=== PATIENT | female | born 1970 | race Caucasian/White ===

== ENCOUNTER 2025-02-13 17:33 | Inpatient (IN) | payer BC, SELFPAY ==
--- NOTE | ~2025-02-13 | XR_ITS ---
CLINICAL HISTORY: cp Two views of the chest. COMPARISON: None FINDINGS: Mitral annular prosthesis present. Normal heart size. No consolidation. No pleural effusion or pneumothorax. Mild rightward curvature of the midthoracic spine. No acute fracture IMPRESSION: 1. No acute cardiopulmonary abnormality. This document has been electronically signed by: Luis Alberto Kelly MD on 02/13/2025 18:35:38
--- NOTE | 2025-02-13 17:35 | ECG_ITS ---
Test Reason : CP Blood Pressure : */* mmHG Vent. Rate : 77 BPM Atrial Rate : 77 BPM P-R Int : 198 ms QRS Dur : 90 ms QT Int : 380 ms P-R-T Axes : 34 -26 54 degrees QTcB Int : 430 ms Sinus rhythm with occasional Premature ventricular complexes Possible Left atrial enlargement Borderline ECG No previous ECGs available Referred By: Caitlin Schwartz Electronically Signed By: Hernandez Flood
--- NOTE | 2025-02-13 17:55 | ED_ITS ---
HPI - Chest Pain General Chief Complaint: Chest Pain Stated Complaint: Chest pain Time Seen by Provider: 02/13/25 18:09 Source: patient Mode of arrival: ambulatory Limitations: no limitations History of Present Illness ED Provider: DR. Child HPI narrative: 54-year-old female came in for evaluation of left-sided chest pain started about 1 hour ago after work constitution party, pain was localized to the left side of the chest radiates down to the left upper extremity described as heaviness on the chest, pain persist since it started may be less now, patient thinks it is anxiety related symptoms. Patient has a history of non STEMI last year and workup was negative for coronary artery disease patient required no stent and was attributed to life stress that patient was going through. Related Data Allergies Allergy/AdvReac Type Severity Reaction Status Date / Time Penicillins Allergy Severe Angioedema Verified 02/13/25 17:59 nitrofurantoin Allergy Intermediate Rash Verified 02/13/25 17:59 [From Macrobid] Sulfa (Sulfonamide Allergy Intermediate Rash Verified 02/13/25 17:59 Antibiotics) Review of Systems 2 Review of Systems: All other systems are reviewed and are negative Constitutional: Reports as per HPI and Reports no additional constitutional complaints Eyes: Reports as per HPI and Reports no additional eye complaints Reports system reviewed and no additional complaints, except as documented Cardiovascular: Reports as per HPI and Reports no additional cardiovascular complaints Respiratory: Reports as per HPI and Reports no additional respiratory complaints Gastrointestinal: Reports as per HPI and Reports no additional gastrointestinal complaints Genitourinary: Reports no additional female genitourinary complaints Musculoskeletal: Reports no additional musculoskeletal complaints Skin/Breast: Reports system reviewed and no additional complaints, except as docu Psychiatric: Reports no additional psychiatric complaints Endocrine: Reports no additional endocrine complaints Hematologic/Lymphatic: Reports no additional hematologic/lymphatic complaints Allergic/Immunologic: Reports no additional allergic/immunologic complaints Reports system reviewed and no additional complaints, except as documented and Reports Abnormal speech present [facility] Past Medical History Medical History Mood disorder Hypertension Social History Social History Smoked in Last 30 Days: No Use of substances other than those prescribed or required for medical reasons: No Advance Directives: No Advance Directives Information Provided: Yes Do you have a plan to hurt others: No Plan Patient : No Physical Exam 2 Vital Signs: Vital Signs: Last Vital Signs Temp 98.3 F 02/13/25 17:56 Pulse 72 02/13/25 22:09 Resp 14 02/13/25 22:09 BP 133/85 02/13/25 22:09 Pulse Ox 97 02/13/25 22:09 O2 Del Method Room Air 02/13/25 22:09 BMI result Body Mass Index 28.7 Vital signs have been reviewed and appear to be correct. Blood pressure elevated. Heart rate normal. Respiratory rate normal. Temperature normal. Oxygen saturation normal. Appearance: Alert. Oriented X3. No acute distress. Head: Normal external exam. Normocephalic. Atraumatic. No C[place]rena signs noted. No raccoon eyes noted Eyes: PERRLA. EOMI. Conjunctiva and sclera normal. Eyelids normal. ENT: TM's Normal. Pharynx normal. Uvula midline. Moist mucous membranes. No trismus noted. No drooling noted. No muffled voice noted. Neck: Normal inspection. Neck supple. FROM. No adenopathy. Thyroid Normal. No meningeal signs. No neck mass noted. CVS: Normal heart rate and rhythm. Heart sound normal. No murmurs noted. Pulses normal throughout. Respiratory: No respiratory distress. Painless inspiration. Breath sounds normal. No wheezes/rales/rhonchi noted. Chest nontender. No accessory muscle usage noted or decreased air movement noted. Abdomen: Soft and nontender. Bowel sounds normal in all 4 quadrants. No distention noted. No organomegaly noted. No visible injury noted. Back: No CVA tenderness. Full range of motion noted. Skin: Skin warm and dry. Normal skin color. Normal skin turgor. No rashes/lesions/lacerations noted. Extremities: No lower extremity edema. Extremities exhibit normal range of motion. Extremities nontender. Neuro: Oriented X 3. Cranial nerve exam: II-XII are grossly intact No motor deficit. No sensory deficit. Reflexes normal. Course Course Course Narrative: This is a Rapid Medical Exam performed in triage by Caitlin Schwartz PA-C. Full HPI, ROS and PE to be performed by primary ED provider. 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 Admits to pain still at present. denies SOB, nausea, dizziness. PE: NAD, nontoxic appearing, talking in complete sentences Plan: EKG, labs, SARs, CXR, ASA Reevaluation(s) Reevaluation #1: non STEMI, no chest pain now after nitro. Case discussed with composition stone applicator on-call Dr. Flood. Received aspirin, nitro, statin, will start on heparin IV , and admit to medical service. Time: 22:29 Medications Administered Generic Name Dose Route Start Last Admin Trade Name Freq PRN Reason Stop Dose Admin Heparin Sodium/Sodium Chloride 25,000 unit in 250 mls @ 0 mls/hr 02/13/25 22:30 02/13/25 22:57 Heparin Sodium,Porcine/1/2ns IVCONT 11.03 units/kg/hr .Q0M ALESSANDRA 10 mls/hr Administration Protocol Per Protocol Sodium Chloride 3 ml 02/14/25 00:00 02/13/25 23:50 0.9 % Sodium Chloride Flush 3 Ml Syringe IVFLUSH Not Given QSHIFT ALESSANDRA Discontinued Medications Generic Name Dose Route Start Last Admin Trade Name Freq PRN Reason Stop Dose Admin Aspirin 325 mg 02/13/25 17:55 02/13/25 18:17 Aspirin Enteric Coated 325 Mg Tablet.Dr PO 02/13/25 17:56 325 mg ONCE ONE Administration Aspirin 324 mg 02/13/25 20:17 02/13/25 20:29 Aspirin 81 Mg Tab.Chew PO 02/13/25 20:18 Not Given ONCE ONE Atorvastatin Calcium 80 mg 02/13/25 20:17 02/13/25 20:28 Atorvastatin Calcium 80 Mg Tablet PO 02/13/25 20:18 80 mg ONCE ONE Administration Heparin Sodium (Porcine) 4,000 unit 02/13/25 22:26 02/13/25 22:56 Heparin Sodium,Porcine 5,000 Unit/Ml Vial IVPUSH 02/13/25 22:27 4,000 unit ONCE ONE Administration Nitroglycerin 0.5 inch 02/13/25 20:17 02/13/25 20:28 Nitroglycerin 2 % Oint 1 Gm Packet TRANSDERMA 02/13/25 20:18 0.5 inch ONCE ONE Administration Medical Decision Making Differential Diagnosis Differential Diagnoses: The differential diagnosis associated with the presentation includes ( ACS, pneumonia, pneumothorax, pleural effusion, muscular chest wall pain, pulmonary embolism, electrolyte derangement, severe anemia) Admission/Observation Consideration of admission/observation: Escalation of care including admission/observation considered Consult Healthcare Provider Management of the patient was discussed with: Hospitalist ( Dr. Reece) and Automatic I Threading Machine Feeder ( Dr. Flood) Lab Data MDM Lab Attestation statement: I reviewed the patient's lab results. 02/13/25 22:45 02/13/25 18:26 Labs: Lab Results 02/13/25 02/13/25 02/13/25 Range/Units 18:26 19:32 21:27 WBC 5.5 (4.8-10.8) X10*3/uL RBC 4.98 (4.20-5.50) X10*6/uL Hgb 14.8 (12.0-16.0) g/dl Hct 42.8 (37.0-47.0) % MCV 85.9 (80.0-98.0) fL MCH 29.7 (27.0-33.0) pg MCHC 34.6 (31.0-35.0) g/dl RDW 11.9 (11.0-16.0) % Plt Count 206 (160-400) X10*3/uL MPV 10.9 (9.4-12.3) fL Immature Gran % (Auto) 0.2 (0.0-0.4) % Neut % (Auto) 53.5 (45-73) % Lymph % (Auto) 34.7 (20-40) % [place] % (Auto) 8.2 (2-11) % Eos % (Auto) 2.7 (0-4) % Baso % (Auto) 0.7 (0-2) % Lymph # (Auto) 1.9 (1.2-4.9) X10*3/uL [place] # (Auto) 0.5 (0.1-1.2) X10*3/uL Eos # (Auto) 0.2 (0.0-0.4) X10*3/uL Baso # (Auto) 0.0 (0.0-0.2) X10*3/uL Abs Immat Gran (auto) 0.01 (0.00-0.03) X10*3/uL Absolute Neuts (auto) 2.9 (2.0-8.3) x10*3/uL Absolute Nucleated RBC 0.000 (0.0-0.012) X10*3/uL Nucleated RBC % (auto) 0.0 (0.0-0.2) /100WBC D-Dimer High Sensitivty < 150 NG/ML Sodium 141 (135-145) mmol/L Potassium 3.9 (3.3-5.1) mmol/L Chloride 108 (96-108) mmol/L Carbon Dioxide 26 (22-29) mmol/L Anion Gap 11 L (12-20) BUN 16 (9-16) mg/dL Creatinine 0.81 (0.5-1.4) mg/dL Estim Creat Clear Calc 97.0 Estimated GFR > 60 Random Glucose 106 (60-115) mg/dL Calcium 9.5 (8.4-10.2) mg/dL Magnesium 2.0 (1.6-2.6) mg/dL Total Bilirubin 0.4 (0.0-1.0) mg/dL Direct Bilirubin 0.1 (0.0-0.5) mg/dL AST 27 (5-31) U/L ALT 26 (0-31) U/L Alkaline Phosphatase 65 (39-117) U/L Troponin I High Sens 76.2 H* 1470.2 H* D (<3.5-17.0) ng/L Total Protein 7.0 (6.5-8.0) g/dL Albumin 4.4 (3.5-5.0) g/dL Influenza Type A (PCR) NEGATIVE (Negative) Influenza Type B (PCR) NEGATIVE (Negative) RSV RNA Qual (PCR) NEGATIVE (Negative) SARS-CoV-2 RNA (RT-PCR) NEGATIVE (Negative) Independent Interpretation I performed an independent interpretation of an: Plain X-Ray ( chest: No acute cardiopulmonary abnormality.) Critical Care Time Critical Care Time Critical Care Time: Yes Total Critical Care Time: 60 Attestation: The patient was critically ill with a high probability of imminent or life- threatening deterioration. I spent greater than 30 minutes of discontinuous time evaluating the patient, delivering critical care at the bedside, discussing evaluating data with consultants. Critical care time does not include time spent performing separately billable procedures or teaching. Time spent performing critical care was 60 minutes. Discharge Plan Discharge Clinical Impression: Non-ST elevated myocardial infarction (non-STEMI) Patient Disposition: Admitted As Inpatient
[2025-02-13 17:56] VITALS: BP 156/102; PULSE 81; RESP 18; TEMP 36.8; O2SAT 98; BMI 28.7
[2025-02-13] MEDS: Aspirin Enteric Coated 325 MG TABLET.DR PO (18:17)
[2025-02-13 18:27] VITALS: BP 139/96; PULSE 70; RESP 16; O2SAT 96
[2025-02-13 18:39] LABS: MANUAL DIFF FLAG NO
[2025-02-13 18:40] LABS: Basophils Percent Auto 0.7 % (0-2); Eosinophils Absolute Auto 0.2 X10*3/uL (0.0-0.4); Eosinophils Percent Auto 2.7 % (0-4); Hematocrit 42.8 % (37.0-47.0); Hemoglobin 14.8 g/dl (12.0-16.0); Imm Gran Abs Auto 0.01 X10*3/uL (0.00-0.03); Imm Gran Pct Auto 0.2 % (0.0-0.4); Lymphocytes Absolute Auto 1.9 X10*3/uL (1.2-4.9); Lymphocytes Percent Auto 34.7 % (20-40); Mean Corpuscular HGB Conc 34.6 g/dl (31.0-35.0); Mean Corpuscular Hemoglobin 29.7 pg (27.0-33.0); Mean Corpuscular Volume 85.9 fL (80.0-98.0); Mean Platelet Volume 10.9 fL (9.4-12.3); Monocytes Absolute Auto 0.5 X10*3/uL (0.1-1.2); Monocytes Percent Auto 8.2 % (2-11); Neutrophils Absolute Auto 2.9 x10*3/uL (2.0-8.3); Neutrophils Percent Auto 53.5 % (45-73); Platelet Count 206 X10*3/uL (160-400); Red Blood Count 4.98 X10*6/uL (4.20-5.50); Red Cell Distribution Width 11.9 % (11.0-16.0); White Blood Count 5.5 X10*3/uL (4.8-10.8)
[2025-02-13 18:56] LABS: Alanine Aminotransferase 26 U/L (0-31); Albumin Level 4.4 g/dL (3.5-5.0); Alkaline Phosphatase 65 U/L (39-117); Anion Gap 11 (12-20); Aspartate Amino Transferase 27 U/L (5-31); Bilirubin Direct 0.1 mg/dL (0.0-0.5); Bilirubin Total 0.4 mg/dL (0.0-1.0); Blood Urea Nitrogen 16 mg/dL (9-16); Calcium 9.5 mg/dL (8.4-10.2); Carbon Dioxide 26 mmol/L (22-29); Chloride 108 mmol/L (96-108); Estimated Glomerular Filt Rate > 60; Glucose Random 106 mg/dL (60-115); Potassium 3.9 mmol/L (3.3-5.1); Sodium 141 mmol/L (135-145)
[2025-02-13 19:16] LABS: Troponin-I High Sensitivity 76.2 ng/L (<3.5-17.0)
[2025-02-13 19:17] LABS: Influenza A PCR NEGATIVE (Negative); Influenza B PCR NEGATIVE (Negative); Resp Syncy Virus RNA Qual PCR NEGATIVE (Negative); SARS COV2 PCR INHOUSE NEGATIVE (Negative)
[2025-02-13 19:44] VITALS: BP 140/87; PULSE 64; RESP 14; O2SAT 99
[2025-02-13 20:05] LABS: D Dimer High Sensitivity < 150 NG/ML
[2025-02-13] MEDS: Nitroglycerin 2 % Oint 1 GM Packet 0.5 INCH TRANSDERMA (20:28)
[2025-02-13] MEDS: Atorvastatin Calcium 80 MG TABLET PO (20:28)
[2025-02-13 20:29] VITALS: BP 151/89; PULSE 65; RESP 16; O2SAT 100
[2025-02-13 20:54] VITALS: BP 126/85; PULSE 67; RESP 12; O2SAT 99
[2025-02-13 21:57] LABS: Troponin-I High Sensitivity 1470.2 ng/L (<3.5-17.0)
[2025-02-13 22:09] VITALS: BP 133/85; PULSE 72; RESP 14; O2SAT 97
--- NOTE | 2025-02-13 22:10 | PC.NURSE ---
Patient awake and alert. skin pwd, resp even and non labored. speaking in full, clear sentences. denies chest pain/pressure at this time. NSR via tele
--- NOTE | 2025-02-13 22:48 | PC.NURSE ---
hospitalist to bedside. patient aware of plan of care for admission for NSTEMI. 2nd IV established and labs obtained prior to starting heparin
[2025-02-13 22:49] LABS: Hematocrit 40.5 % (37.0-47.0); Hemoglobin 14.3 g/dl (12.0-16.0); Mean Corpuscular HGB Conc 35.3 g/dl (31.0-35.0); Mean Corpuscular Hemoglobin 29.5 pg (27.0-33.0); Mean Corpuscular Volume 83.7 fL (80.0-98.0); Mean Platelet Volume 10.6 fL (9.4-12.3); Platelet Count 197 X10*3/uL (160-400); Red Blood Count 4.84 X10*6/uL (4.20-5.50); Red Cell Distribution Width 11.9 % (11.0-16.0); White Blood Count 6.1 X10*3/uL (4.8-10.8)
[2025-02-13] MEDS: Heparin Sodium,Porcine 5,000 UNIT/ML VIAL 4000 UNIT IVPUSH (22:56)
[2025-02-13] MEDS: Heparin Sodium,Porcine/1/2NS 25,000 UNIT/250 ML IV.SOLN 10 UNIT IVCONT (22:57)
--- NOTE | 2025-02-13 23:05 | P.HPHOSP_ITS ---
History of Present Illness Date of Service: 02/13/25 Chief Complaint: Chest pain This is a 54-year-old female with pertinent history of hypertension, mood disorder who presents to the emergency department for evaluation of chest pain. Patient states she had sudden onset of left-sided chest pain while she was walking which lasted until she came to the ER. The chest pain subsided with rest. Did not increase with exertion. It was constant and radiated down the left arm. Patient thinks the nitroglycerin patch in the ER provided some relief. No associated nausea, sweating or shortness of breath. States she had NSTEMI 1 year ago when coronary cardiac catheterization did not reveal any obstructive CAD. She does not have any stents in place. No fever, chills, palpitations, abdominal pain, changes in urinary or bowel habits. In the emergency department, troponin found to be elevated and patient was initiated on IV heparin. Cardiology was consulted Review of Systems 2 Cardiovascular: Cardiovascular: Reports chest pain and Reports chest pain with activity Gastrointestinal: Gastrointestinal: Reports no additional gastrointestinal complaints Genitourinary: Genitourinary: Reports no additional female genitourinary complaints [facility] Medical History Mood disorder Hypertension Pertinent family history: No family history of early CAD Social History Smoked in Last 30 Days: No Use of substances other than those prescribed or required for medical reasons: No Advance Directives: No Advance Directives Information Provided: Yes Do you have a plan to hurt others: No Plan Patient : No Meds Allergies Allergy/AdvReac Type Severity Reaction Status Date / Time Penicillins Allergy Severe Angioedema Verified 02/13/25 17:59 nitrofurantoin Allergy Intermediate Rash Verified 02/13/25 17:59 [From Macrobid] Sulfa (Sulfonamide Allergy Intermediate Rash Verified 02/13/25 17:59 Antibiotics) Active Medications: Current Medications Heparin Sodium (Porcine) (Heparin Sodium,Porcine 5,000 Unit/Ml Vial) 3,600 unit 40 unit/kg (3600 unit) IVPUSH PROTOCOL BOLUS PRN; Protocol PRN Reason: 40 unit/kg - Heparin Protocol Heparin Sodium (Porcine) (Heparin Sodium,Porcine 5,000 Unit/Ml Vial) 7,300 unit 80 unit/kg (7300 unit) IVPUSH PROTOCOL BOLUS PRN; Protocol PRN Reason: 80 unit/kg - Heparin Protocol Heparin Sodium/Sodium Chloride (Heparin Sodium,Porcine/1/2ns) 25,000 unit in 250 mls @ 0 mls/hr IVCONT .Q0M [facility]; Protocol Last Admin: 02/13/25 22:57 Dose: 11.03 units/kg/hr, 10 mls/hr Physical Exam 2 Vital Signs and Narrative: Vital Signs: Last Vital Signs Temp 98.3 F 02/13/25 17:56 Pulse 72 02/13/25 22:09 Resp 14 02/13/25 22:09 BP 133/85 02/13/25 22:09 Pulse Ox 97 02/13/25 22:09 O2 Del Method Room Air 02/13/25 22:09 BMI result Body Mass Index 28.7 Middle-aged female lying in bed in no distress Neck supple, no JVD Regular rate and rhythm, S1-S2 heard Regular breath sounds bilaterally, no wheezing or crackles appreciated Abdomen soft nontender, no guarding, no rigidity Patient is awake, alert and oriented to self, place, time and person ; no focal motor deficit Psych: Normal mood No pedal edema Results Labs 02/13/25 22:45 02/13/25 18:26 Labs: Laboratory Results - last 24 hr 02/13/25 02/13/25 02/13/25 18:26 19:32 22:45 MCV 85.9 83.7 MCH 29.7 29.5 MCHC 34.6 35.3 H RDW 11.9 11.9 Plt Count 206 197 MPV 10.9 10.6 Immature Gran % (Auto) 0.2 Neut % (Auto) 53.5 Lymph % (Auto) 34.7 [place] % (Auto) 8.2 Eos % (Auto) 2.7 Baso % (Auto) 0.7 Lymph # (Auto) 1.9 [place] # (Auto) 0.5 Eos # (Auto) 0.2 Baso # (Auto) 0.0 Abs Immat Gran (auto) 0.01 Absolute Neuts (auto) 2.9 Absolute Nucleated RBC 0.000 0.000 Nucleated RBC % (auto) 0.0 0.0 D-Dimer High Sensitivty < 150 Anion Gap 11 L Estim Creat Clear Calc 97.0 Estimated GFR > 60 Random Glucose 106 Calcium 9.5 Magnesium 2.0 Total Bilirubin 0.4 Direct Bilirubin 0.1 AST 27 ALT 26 Alkaline Phosphatase 65 Total Protein 7.0 Albumin 4.4 Influenza Type A (PCR) NEGATIVE Influenza Type B (PCR) NEGATIVE RSV RNA Qual (PCR) NEGATIVE SARS-CoV-2 RNA (RT-PCR) NEGATIVE Assessment and Plan (1) Non-ST elevated myocardial infarction (non-STEMI): Status: Acute Plan This is a 54-year-old female with pertinent history of hypertension, mood disorder who presents to the emergency department for evaluation of chest pain. #. NSTEMI: Will admit patient with cardiac monitoring. Initiated IV heparin. Also initiated aspirin and high-intensity statin. Patient is on beta-kay. Consulted Cardiology, appreciate assistance. Echo in a.m. #. Hypertension: On metoprolol #. Mood disorder: On lorazepam p.r.n. Med rec pending DVT prophylaxis: IV heparin Full code Admit as inpatient and will require two night minimum hospital stay for IV heparin (as above), which is not possible in a lesser acute setting. trousseau consultant Quality Stroke Does the patient have a stroke diagnosis?: No VTE Prior VTE?: No VTE Risk Level:: Medical - moderate - high VTE Device Contraindication: Treatment Not Indicated VTE Drug Contraindication: N/A - Med Ordered
[2025-02-13 23:13] LABS: Prothrombin Time 11.8 SEC (10.9-12.4)
[2025-02-13 23:15] LABS: PTT Heparin Drip 32.3 SEC (53-77.9)
--- NOTE | 2025-02-14 | ECG_ITS ---
Test Reason : elevated tropoin Blood Pressure : */* mmHG Vent. Rate : 77 BPM Atrial Rate : 77 BPM P-R Int : 200 ms QRS Dur : 78 ms QT Int : 384 ms P-R-T Axes : 45 -43 33 degrees QTcB Int : 434 ms Sinus rhythm with occasional Premature ventricular complexes Left axis deviation Nonspecific T wave abnormality Abnormal ECG When compared with ECG of 13-Feb-2025 17:43, Nonspecific T wave abnormality, worse in Lateral leads Referred By: Pamela Bonilla Electronically Signed By: Hernandez Flood
[2025-02-14] MEDS: Acetaminophen 325 MG TABLET 650 MG PO ×2 (00:43→06:11)
--- NOTE | 2025-02-14 01:38 | PC.NURSE ---
This radio news writer assumed care of this Pt at 2300. Pt A&Ox3, Pt reports 5/10 headache, Tylenol given per request. Reports complete Pt brought up to room 460. Pt ambulated independently with steady gait.
[2025-02-14 01:42] VITALS: BP 123/78; PULSE 78; TEMP 36; O2SAT 95
[2025-02-14 03:36] VITALS: BP 112/72; PULSE 67; RESP 18; TEMP 36.6; O2SAT 96
[2025-02-14 06:26] LABS: Hematocrit 41.6 % (37.0-47.0); Mean Corpuscular HGB Conc 33.7 g/dl (31.0-35.0); Mean Corpuscular Hemoglobin 28.9 pg (27.0-33.0); Mean Corpuscular Volume 85.8 fL (80.0-98.0); Mean Platelet Volume 11.4 fL (9.4-12.3); Platelet Count 190 X10*3/uL (160-400); Red Blood Count 4.85 X10*6/uL (4.20-5.50); Red Cell Distribution Width 11.9 % (11.0-16.0); White Blood Count 5.6 X10*3/uL (4.8-10.8)
[2025-02-14 06:32] LABS: INTERNATIONAL NORM RATIO 1.1 (0.9-1.1); Prothrombin Time 12.2 SEC (10.9-12.4)
[2025-02-14 06:44] LABS: Anion Gap 11 (12-20); Blood Urea Nitrogen 14 mg/dL (9-16); Calcium 9.1 mg/dL (8.4-10.2); Carbon Dioxide 25 mmol/L (22-29); Chloride 110 mmol/L (96-108); Creatinine Clr Calc Pharmacy 115.5; Estimated Glomerular Filt Rate > 60; Glucose Random 106 mg/dL (60-115); Sodium 142 mmol/L (135-145)
--- NOTE | 2025-02-14 07:00 | CA_ITS ---
Transthoracic Echocardiogram Patient (Last, First, Middle): Lisa Maharaj E Gender: Female Date of : 1970 Age: 54 Procedure Date: 02/14/2025 Procedure Type: Transthoracic Echocardiogram Location: [facility] [place] Height: 177.8 cm Weight: 90.27 kg BSA: 2.08 m2 Heart Rate: 67 bpm BP: 103 / 71 mmHg Tinter Photograph: SB Referring MD: Jered Reece MD Symptoms: NSTEMI Study Quality: Adequate ECG Rhythm: Sinus Conclusions: - Normal left ventricular size, thickness, and systolic function. The visually estimated ejection fraction is between 55-60%. - The basal inferior, mid anterolateral, and mid inferolateral segments are hypokinetic. - Normal right ventricular cavity size and systolic function. - Ring repair of mitral valve in the past. - There is mild dilatation of the sinuses of Valsalva measuring 4.10 cm and mild dilatation of the ascending aorta measuring 3.70 cm. Findings Left Ventricle Normal left ventricular size, thickness, and systolic function. The visually estimated ejection fraction is between 55-60%. There is evidence of regional wall motion abnormalities. Diastolic function is indeterminate on the basis of available data. Reduced global longitudinal strain -13%. Wall Motion Rest Echo Findings The basal inferior, mid anterolateral, and mid inferolateral segments are hypokinetic. Right Ventricle Normal right ventricular cavity size and systolic function. Atria The left atrium is normal in size. The right atrium is normal in size. Aortic Valve Normal aortic valve structure and function. There is no aortic valve stenosis. There is no aortic valve regurgitation. Mitral Valve There is no mitral valve regurgitation. There is no mitral valve stenosis. Ring repair of mitral valve in the past. Pulmonic Valve The pulmonic valve is normal. There is trace pulmonic valve regurgitation. Tricuspid Valve Normal tricuspid valve structure. There is no tricuspid valve regurgitation. Tricuspid regurgitation envelope is inadequate for calculation of right ventricular systolic pressure. Normal right atrial pressure. Great Vessels There is mild dilatation of the sinuses of Valsalva measuring 4.10 cm and mild dilatation of the ascending aorta measuring 3.70 cm. The visualized portions of the pulmonary artery and branches are normal. Venous The inferior vena cava is normal in size and collapses greater than 50% with inspiration. Pericardium/Pleural There is no evidence of pericardial effusion. Prior Study Comparison No prior study available for comparison. Measurements 2D Linear Measurements IVSd: 1.08 0.6-0.9/0.6-1.0 cm LVIDd: 4.22 3.9-5.3/4.2-5.9 cm LVIDd Index: 2.03 2.4-3.2/2.2-3.1 cm/m2 LVIDs: 3.17 2.0-3.6 cm LVPWd: 0.79 0.7-1.1 cm LA Diam: 4.40 2.7-3.8/3.0-4.0 cm LAIDs Index: 2.12 1.5-2.3 cm/m2 LV Mass: 156.17 67-162/88-224 g LV Mass Index: 75.08 43-95/49-115 g/m2 LVOT Diam: 2.30 3.0+(-)1.3 cm 2D Systolic Function EF 4C: 35.30 >55% EF 2C: 55.60 >55% EF BiP: 46.40 >55% Mitral Valve MV VTI: 0.35 MV Pk Al: 1.46 MV Mn Al: 0.89 MV Pk Grad: 9.00 MV Mn Grad: 4.00 MV Pk E: 1.25 MV PK A: 1.36 MV Decel Time: 177.00 E/A: 0.90 E'Lateral: 5.33 E'Medial: 4.90 E/E' Med: 25.50 E/E' Lat: 23.50 PHT: 52.00 MVA PHT: 4.23 MVA Continuity: 2.30 Decel Bledsoe: 7.09 Aortic Valve AoV Pk Al: 0.91 AoV Pk Grad: 3.00 MARE: 4.24 LVOT LVOT Pk Al: 0.93 LVOT Mn Al: 0.66 LVOT VTI: 0.19 LVOT Pk Grad: 3.00 LVOT Mn Grad: 2.00 LVOT Diam: 2.30 LVOT Area: 4.15 Diastolic Function MV Pk E: 1.25 MV Pk A: 1.36 E/A: 0.90 E'Medial: 4.90 E/E' Med: 25.50 E' Laterial: 5.33 E/E' Lat: 23.50 Right Ventricle TAPSE (mm): 22.60 TVS' Al: 13.40 Tricuspid Valve RA Press: 3.00 Great Vessels Aorta Sinus of Valsalva: 4.10 2.0-3.5 cm Ao Asc: 3.70 2.1-3.4 cm Pulmonary Veins Pulm Vein S/D 1.90 Pulmonary Valve PV Pk Al: 0.63 Peak PV Grad: 2.00 Updated in Other Vendor System with Status of Final Hernandez Flood MD electronically signed on 02/14/2025 2:27:22 PM with status of Final
[2025-02-14 07:16] VITALS: BP 103/71; PULSE 67; RESP 16; TEMP 36.4; O2SAT 96
[2025-02-14] MEDS: Aspirin 81 MG TAB.CHEW PO (08:26)
--- NOTE | 2025-02-14 08:28 | PHA.MEDREC ---
Addendum entered by David Terry [facility] 02/14/25 08:55: Med rec was reviewed by [facility]. Addendum entered by Lynette Fields 02/14/25 08:41: Patient confirmed she is taking her Zolpidem 10mg tab 1/2 tab (5mg) as needed for sleep instead of 1 tab as needed. Original Note: Pharmacy Consult ? Medication Reconciliation Pharmacy has completed the medication reconciliation. Spoke with patient and she confirmed her medications. Patient confirmed she still has Valacyclovir 500mg tab as needed for outbreaks. She confirmed she takes the Estradiol cream MOTH and D-Mannos daily but states she has not taken either of those in about a week.
[2025-02-14] MEDS: 0.9 % Sodium Chloride Flush 3 ML SYRINGE IVFLUSH (08:35)
--- NOTE | 2025-02-14 08:52 | MHC.CM.PN ---
CM met with Patient at bedside. Patient lives in a house with her 2 adult Daughters and she is functionally independent. Home/self care is Patient's goal and CM has initiated and will follow for dc planning. PCP is Dr. Isis Orellana and Patient hopes to drive herself home (car is here) at time of dc.
[2025-02-14 10:51] VITALS: BP 110/70; PULSE 75; RESP 16; TEMP 36.8; O2SAT 97
--- NOTE | 2025-02-14 11:44 | PM.CNCAR ---
History of Present Illness History of Present Illness Date of Service: 02/15/25 Requesting physician: Pamela Bonilla Chief complaint: NSTEMI Narrative: Pleasant 54 year female with background history of mitral valve repair in [place] who follows with cardiology in [place] presenting for chest discomfort and arm discomfort starting 17:00 yesterday. She said she was at work when she started feeling pressure-like feeling in the chest and arm discomfort. She had similar episode in September 2023 when she was thought to have vasospasm and was sent home with amlodipine. 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 She does not have any dynamic EKG changes but has significantly elevated troponin level of 11,000 at this point. Echocardiography was done which is showing mid anterolateral and mid inferolateral hypokinesis. She is currently symptom free. She is on a heparin drip. She was not taking aspirin which was stopped also after previous catheterization. [facility] Past Medical History Medical History Mood disorder Hypertension Social History Social History Household Members: Children Housing: House Patient Tobacco Use Status: Never used Tobacco service: No Meds Allergies Allergy/AdvReac Type Severity Reaction Status Date / Time Penicillins Allergy Severe Angioedema Verified 02/13/25 17:59 nitrofurantoin Allergy Intermediate Rash Verified 02/13/25 17:59 [From Macrobid] Sulfa (Sulfonamide Allergy Intermediate Rash Verified 02/13/25 17:59 Antibiotics) Active Medications: Current Medications Acetaminophen (Acetaminophen 325 Mg Tablet) 650 mg PO Q6H PRN PRN Reason: Pain, Mild 1-3,fever,headache Last Admin: 02/14/25 06:11 Dose: 650 mg Aspirin (Aspirin 81 Mg Tab.Chew) 81 mg PO DAILY ALESSANDRA Last Admin: 02/14/25 08:26 Dose: 81 mg Atorvastatin Calcium (Atorvastatin Calcium 40 Mg Tablet) 40 mg PO BEDTIME ALESSANDRA Calcium Carbonate (Calcium Carbonate 750 Mg Tab.Chew) 750 mg PO Q4H PRN PRN Reason: Heartburn Heparin Sodium (Porcine) (Heparin Sodium,Porcine 5,000 Unit/Ml Vial) 3,600 unit 40 unit/kg (3600 unit) IVPUSH PROTOCOL BOLUS PRN; Protocol PRN Reason: 40 unit/kg - Heparin Protocol Heparin Sodium (Porcine) (Heparin Sodium,Porcine 5,000 Unit/Ml Vial) 7,300 unit 80 unit/kg (7300 unit) IVPUSH PROTOCOL BOLUS PRN; Protocol PRN Reason: 80 unit/kg - Heparin Protocol Heparin Sodium/Sodium Chloride (Heparin Sodium,Porcine/1/2ns) 25,000 unit in 250 mls @ 0 mls/hr IVCONT .Q0M [facility]; Protocol Last Titration: 02/14/25 08:21 Dose: 8.03 units/kg/hr, 7.28 mls/hr Lorazepam (Lorazepam 0.5 Mg Tablet) 0.5 mg PO BID PRN PRN Reason: anxiety Magnesium Hydroxide (Milk Of Magnesia 30 Ml Oral.Susp) 30 ml PO DAILY PRN PRN Reason: Constipation Melatonin (Melatonin 3 Mg Tablet) 6 mg PO BEDTIME PRN PRN Reason: Insomnia Metoprolol Succinate (Metoprolol Succinate Er 25 Mg Tab.Er.24h) 25 mg PO DAILY [facility]; Protocol Ondansetron HCl (Ondansetron Hcl 4 Mg/2 Ml Vial) 4 mg IVPUSH Q8H PRN PRN Reason: Nausea and Vomiting Sodium Chloride (0.9 % Sodium Chloride Flush 3 Ml Syringe) [address] [facility] [facility] Last Admin: 02/14/25 08:35 Dose: 3 ml Home Medications ?Medication ?Instructions ?Recorded ?Confirmed ?Last Taken ?Type d-mannose 500 mg capsule 1,000 mg PO DAILY 02/14/25 02/14/25 1 Week Ago History ~02/07/25 estradiol 0.01% (0.1 mg/gram) 1 g vaginal MOTH 02/14/25 02/14/25 1 Week Ago History vaginal cream ~02/07/25 lorazepam 0.5 mg tablet 0.5 mg PO BID PRN anxiety 02/14/25 02/14/25 Unknown History metoprolol succinate 25 mg 25 mg PO DAILY 02/14/25 02/14/25 02/13/25 History tablet,extended release 24 hr valacyclovir 500 mg tablet 500 mg PO BID PRN Outbreak 02/14/25 02/14/25 Unknown History zolpidem 10 mg tablet 5 mg PO BEDTIME PRN Sleep 02/14/25 02/14/25 Unknown History Physical Exam Vital Signs: Vital Signs: Last Vital Signs Temp 98.2 F 02/14/25 10:51 Pulse 75 02/14/25 10:51 Resp 16 02/14/25 10:51 BP 110/70 02/14/25 10:51 Pulse Ox 97 02/14/25 10:51 O2 Del Method Room Air 02/14/25 10:51 BMI result Body Mass Index 28.7 GENERAL APPEARANCE: in no acute distress, pleasant. NECK: no carotid bruit, no jugular venous distention. SKIN: no suspicious lesions, warm and dry. HEART: no murmurs, regular rate and rhythm. LUNGS: clear to auscultation bilaterally. ABDOMEN: soft, nontender. EXTREMITIES: no edema. PERIPHERAL PULSES: equal. NEUROLOGIC: No gross deficits, AAO X 3 Objective Labs and Meds 02/14/25 05:47 02/14/25 05:47 Lab results: Laboratory Results - last 24 hr 02/13/25 02/13/25 02/13/25 18:26 19:32 21:27 WBC 5.5 RBC 4.98 Hgb 14.8 Hct 42.8 MCV 85.9 MCH 29.7 MCHC 34.6 RDW 11.9 Plt Count 206 MPV 10.9 Immature Gran % (Auto) 0.2 Neut % (Auto) 53.5 Lymph % (Auto) 34.7 [place] % (Auto) 8.2 Eos % (Auto) 2.7 Baso % (Auto) 0.7 Lymph # (Auto) 1.9 [place] # (Auto) 0.5 Eos # (Auto) 0.2 Baso # (Auto) 0.0 Abs Immat Gran (auto) 0.01 Absolute Neuts (auto) 2.9 Absolute Nucleated RBC 0.000 Nucleated RBC % (auto) 0.0 PT INR aPTT Heparin Protocol D-Dimer High Sensitivty < 150 Sodium 141 Potassium 3.9 Chloride 108 Carbon Dioxide 26 Anion Gap 11 L BUN 16 Creatinine 0.81 Estim Creat Clear Calc 97.0 Estimated GFR > 60 Random Glucose 106 Calcium 9.5 Magnesium 2.0 Total Bilirubin 0.4 Direct Bilirubin 0.1 AST 27 ALT 26 Alkaline Phosphatase 65 Troponin I High Sens 76.2 H* 1470.2 H* D Total Protein 7.0 Albumin 4.4 Influenza Type A (PCR) NEGATIVE Influenza Type B (PCR) NEGATIVE RSV RNA Qual (PCR) NEGATIVE SARS-CoV-2 RNA (RT-PCR) NEGATIVE 02/13/25 02/14/25 02/14/25 22:45 05:47 09:03 WBC 6.1 5.6 RBC 4.84 4.85 Hgb 14.3 14.0 Hct 40.5 41.6 MCV 83.7 85.8 MCH 29.5 28.9 MCHC 35.3 H 33.7 RDW 11.9 11.9 Plt Count 197 190 MPV 10.6 11.4 Immature Gran % (Auto) Neut % (Auto) Lymph % (Auto) [place] % (Auto) Eos % (Auto) Baso % (Auto) Lymph # (Auto) Nicholas # (Auto) Eos # (Auto) Baso # (Auto) Abs Immat Gran (auto) Absolute Neuts (auto) Absolute Nucleated RBC 0.000 0.000 Nucleated RBC % (auto) 0.0 0.0 PT 11.8 12.2 INR 1.0 1.1 aPTT Heparin Protocol 32.3 L 98.0 H D D-Dimer High Sensitivty Sodium 142 Potassium 4.0 Chloride 110 H Carbon Dioxide 25 Anion Gap 11 L BUN 14 Creatinine 0.68 Estim Creat Clear Calc 115.5 Estimated GFR > 60 Random Glucose 106 Calcium 9.1 Magnesium Total Bilirubin Direct Bilirubin AST ALT Alkaline Phosphatase Troponin I High Sens 79654.0 H* D Total Protein Albumin Influenza Type A (PCR) Influenza Type B (PCR) RSV RNA Qual (PCR) SARS-CoV-2 RNA (RT-PCR) Assessment and Plan (1) Non-ST elevated myocardial infarction (non-STEMI): Status: Acute Plan [age] year female presenting with chest discomfort and NSTEMI. She previously had an episode in September 2023 which was thought to be secondary to coronary vasospasm and she was started on amlodipine. I reviewed her angiogram from 2023 and she has significantly tortuous coronary arteries and anatomy is concerning for spontaneous coronary artery dissection as a potential etiology for her. She is currently pain-free. We will continue heparin and aspirin. Agree with beta-blockers currently. We will transfer to [facility] and she will undergo diagnostic angiography. We will try to do this today. Please keep her NPO. Further management plan will be given once the angiogram is completed. Thank you for allowing me to participate in the care of your patient. Please feel free to contact me if you have any questions. Procedures Date of Service Date of Service: 02/15/25
--- NOTE | 2025-02-14 11:48 | P.DS_ITS ---
DS: Providers Provider Date of Service: 02/14/25 Date of admission: 02/13/25 22:29 Date of discharge: 02/14/25 Primary care physician: Isis Orellana MD Consults: 02/13/25 23:17 Consult to Cardiology Routine Consulting Provider: [facility] Reason for consultation: NSTEMI Has provider been notified: Yes Attending physician on discharge: Bulmaro Grimes Discharging clinician: Pamela Bonilla DS: Diagnosis Discharge Diagnosis (1) Non-ST elevated myocardial infarction (non-STEMI): Status: Acute DS: Summary Hospital Course Hospital Course: From H&P on the day of admission This is a 54-year-old female with pertinent history of hypertension, mood disorder who presents to the emergency department for evaluation of chest pain. Patient states she had sudden onset of left-sided chest pain while she was walking which lasted until she came to the ER. The chest pain subsided with rest. Did not increase with exertion. It was constant and radiated down the left arm. Patient thinks the nitroglycerin patch in the ER provided some relief. No associated nausea, sweating or shortness of breath. States she had NSTEMI 1 year ago when coronary cardiac catheterization did not reveal any obstructive CAD. She does not have any stents in place. No fever, chills, palpitations, abdominal pain, changes in urinary or bowel habits. In the emergency department, troponin found to be elevated and patient was initiated on IV heparin. Cardiology was consulted NSTEMI. Presented after an episode of chest pain with radiation down her left arm. She has history of NSTEMI 1 year ago but had stopped taking aspirin, does not appear to be on statin at baseline. She was treated with aspirin, high- intensity statin. Started on heparin drip. Cardiac enzymes trended up from 76 to 1470 to [address]. She was evaluated by Cardiology who recommended transfer to [facility] for cardiac catheterization. Echocardiogram results pending time discharge. Patient is currently chest pain-free. Time Attestation Discharge Coordination Time (in mins): 35 Quality: Safe Use of Opioids Does Pt have an Active Cancer Diagnosis on the Problem List?: No Quality: Stroke Does the patient have a stroke diagnosis?: No Physical Exam Vital Signs: Vital Signs: Last Vital Signs Temp 98.2 F 02/14/25 10:51 Pulse 75 02/14/25 10:51 Resp 16 02/14/25 10:51 BP 110/70 02/14/25 10:51 Pulse Ox 97 02/14/25 10:51 O2 Del Method Room Air 02/14/25 10:51 BMI result Body Mass Index 28.7 Const: General: cooperative, comfortable, no acute distress, alert and awake Nutritional Appearance: average body habitus Orientation/consciousness: patient oriented x3 Resp: Effort & Inspection: normal respiratory effort and able to speak in complete sentences Auscultation: clear to auscultation bilaterally Cardio: Rate: regular rate Neuro: General: patient oriented x3 DS: Data Data Completed and Pending Labs on day of discharge: Laboratory Results - last 24 hr 02/13/25 02/13/25 02/13/25 18:26 19:32 21:27 WBC 5.5 RBC 4.98 Hgb 14.8 Hct 42.8 MCV 85.9 MCH 29.7 MCHC 34.6 RDW 11.9 Plt Count 206 MPV 10.9 Immature Gran % (Auto) 0.2 Neut % (Auto) 53.5 Lymph % (Auto) 34.7 [place] % (Auto) 8.2 Eos % (Auto) 2.7 Baso % (Auto) 0.7 Lymph # (Auto) 1.9 [place] # (Auto) 0.5 Eos # (Auto) 0.2 Baso # (Auto) 0.0 Abs Immat Gran (auto) 0.01 Absolute Neuts (auto) 2.9 Absolute Nucleated RBC 0.000 Nucleated RBC % (auto) 0.0 PT INR aPTT Heparin Protocol D-Dimer High Sensitivty < 150 Sodium 141 Potassium 3.9 Chloride 108 Carbon Dioxide 26 Anion Gap 11 L BUN 16 Creatinine 0.81 Estim Creat Clear Calc 97.0 Estimated GFR > 60 Random Glucose 106 Calcium 9.5 Magnesium 2.0 Total Bilirubin 0.4 Direct Bilirubin 0.1 AST 27 ALT 26 Alkaline Phosphatase 65 Troponin I High Sens 76.2 H* 1470.2 H* D Total Protein 7.0 Albumin 4.4 Influenza Type A (PCR) NEGATIVE Influenza Type B (PCR) NEGATIVE RSV RNA Qual (PCR) NEGATIVE SARS-CoV-2 RNA (RT-PCR) NEGATIVE 02/13/25 02/14/25 02/14/25 22:45 05:47 09:03 WBC 6.1 5.6 RBC 4.84 4.85 Hgb 14.3 14.0 Hct 40.5 41.6 MCV 83.7 85.8 MCH 29.5 28.9 MCHC 35.3 H 33.7 RDW 11.9 11.9 Plt Count 197 190 MPV 10.6 11.4 Immature Gran % (Auto) Neut % (Auto) Lymph % (Auto) [place] % (Auto) Eos % (Auto) Baso % (Auto) Lymph # (Auto) [place] # (Auto) Eos # (Auto) Baso # (Auto) Abs Immat Gran (auto) Absolute Neuts (auto) Absolute Nucleated RBC 0.000 0.000 Nucleated RBC % (auto) 0.0 0.0 PT 11.8 12.2 INR 1.0 1.1 aPTT Heparin Protocol 32.3 L 98.0 H D D-Dimer High Sensitivty Sodium 142 Potassium 4.0 Chloride 110 H Carbon Dioxide 25 Anion Gap 11 L BUN 14 Creatinine 0.68 Estim Creat Clear Calc 115.5 Estimated GFR > 60 Random Glucose 106 Calcium 9.1 Magnesium Total Bilirubin Direct Bilirubin AST ALT Alkaline Phosphatase Troponin I High Sens 85176.0 H* D Total Protein Albumin Influenza Type A (PCR) Influenza Type B (PCR) RSV RNA Qual (PCR) SARS-CoV-2 RNA (RT-PCR) Discharge Plan Discharge Anticipated Discharge Date/Time: 02/14/25 12:01 Patient Disposition: Xfer Acute Care Hospital Discharge Diagnosis: NSTEMI Referrals: Isis Orellana MD [Primary Care Provider] - 1 Week Discharge Medications: New atorvastatin 40 mg Tablet 40 mg PO BEDTIME Qty: 90 0RF aspirin 81 mg Tablet,Chewable 81 mg PO DAILY Qty: 90 0RF heparin(porcine) in 0.45% NaCl 25,000 unit/250 mL Parenteral Solution 25,000 unit continuous IV infusion .Q0M Qty: 6000 0RF Continued lorazepam 0.5 mg tablet 0.5 mg PO BID PRN (Reason: anxiety) metoprolol succinate 25 mg tablet extended release 24 hr 25 mg PO DAILY estradiol 0.01 % (0.1 mg/gram) cream 1 g VAGINAL MOTH zolpidem 10 mg tablet 5 mg PO BEDTIME PRN (Reason: Sleep) valacyclovir 500 mg tablet 500 mg PO BID PRN (Reason: Outbreak) d-mannose 500 mg Capsule 1,000 mg PO DAILY Discharge Orders: Discharge Order (Routine); Ordered 02/14/25 Ordered By: Pamela Bonilla Activity on Discharge: As tolerated Stand Alone Forms: Patient Portal Discharge page Print Language: Divehi Care Plan Goals: See below Health Concerns: NSTEMI Plan of Treatment: Continue aspirin, statin, metoprolol, heparin drip Transfer to [facility] for cardiac catheterization Echocardiogram results pending at the time of discharge Assessment: See discharge summary
--- NOTE | 2025-02-14 12:07 | MHC.CM.PN ---
Patient will transfer to [facility] today.
[2025-02-14 12:39] LABS: PTT Heparin Drip 52.5 SEC (53-77.9)
[2025-02-14] MEDS: LORazepam 0.5 MG TABLET PO (12:42)
[2025-02-14] MEDS: Metoprolol Succinate ER 25 MG TAB.ER.24H PO (12:42)
== END 2025-02-14 13:17 | disposition short-term general hospital (02) | DRG 190 ==
LOC: HO.ED 22:28 → HO.EDOVER 22:53 → HO.IMC 02-14 00:30
PROVIDERS: Physician Assistant; Admitting Provider Student in an Organized Health Care Education/Training Program; Emergency Provider Emergency Medicine; PCP Internal Medicine; Visit Provider Physician Assistant Medical
DX: I21.4 Non-ST elevation (NSTEMI) myocardial infarction (principal); F39 Unspecified mood [affective] disorder; I10 Essential (primary) hypertension; Z20.822 Contact with and (suspected) exposure to COVID-19; Z79.82 Long term (current) use of aspirin; Z79.899 Other long term (current) drug therapy
CPT/HCPCS: 0241U; 36415; 71046; 80048; 80076; 83735; 84484; 85025; 85027; 85379; 85610; 85730; 93005; 93306; 99285; J1644; Q9957

== ENCOUNTER → 2025-02-13 17:55 | Outpatient (BNV) | payer BC, SELFPAY | PROVIDERS: Emergency Provider Emergency Medicine; PCP Internal Medicine; Visit Provider Radiology Diagnostic Radiology | DX: R07.9 Chest pain, unspecified (principal) | CPT/HCPCS: 71046 ==

== ENCOUNTER 2025-02-13 22:29 | Outpatient (BNV) | payer BC, SELFPAY | END 2025-02-14 07:00 | PROVIDERS: Admitting Provider Student in an Organized Health Care Education/Training Program; Emergency Provider Emergency Medicine; PCP Internal Medicine; Visit Provider Internal Medicine Cardiovascular Disease | DX: I21.4 Non-ST elevation (NSTEMI) myocardial infarction (principal); R93.1 Abnormal findings on diagnostic imaging of heart and coronary circulation | CPT/HCPCS: 93306; 93356 ==

== ENCOUNTER → 2025-02-13 22:29 | Outpatient (BNV) | payer BC, SELFPAY | PROVIDERS: Admitting Provider Student in an Organized Health Care Education/Training Program; Emergency Provider Emergency Medicine; PCP Internal Medicine; Visit Provider Student in an Organized Health Care Education/Training Program | DX: I21.4 Non-ST elevation (NSTEMI) myocardial infarction (principal) | CPT/HCPCS: 99222; 99239 ==

== ENCOUNTER → 2025-02-13 22:29 | Outpatient (BNV) | payer BC, SELFPAY | PROVIDERS: Admitting Provider Student in an Organized Health Care Education/Training Program; Emergency Provider Emergency Medicine; PCP Internal Medicine; Visit Provider Internal Medicine Cardiovascular Disease | DX: I21.4 Non-ST elevation (NSTEMI) myocardial infarction (principal); Z95.4 Presence of other heart-valve replacement; I25.41 Coronary artery aneurysm; I49.3 Ventricular premature depolarization | CPT/HCPCS: 93010; 99233 ==

== ENCOUNTER → 2025-02-14 23:59 | Outpatient (BNV) | payer BC, SELFPAY | PROVIDERS: PCP Internal Medicine; Visit Provider Internal Medicine Cardiovascular Disease | DX: I21.4 Non-ST elevation (NSTEMI) myocardial infarction (principal) | CPT/HCPCS: 93458; 99152 ==